=== PATIENT | female | born 1980 | race American Indian/Alaskan Native ===

== ENCOUNTER 2016-07-28 19:37 | Emergency (ER) | payer SELFPAY ==
[2016-07-28] MEDS ORDERED: Famotidine 20 MG/2 ML SDV IVPUSH ONE (19:49)
[2016-07-28] MEDS ORDERED: Nitroglycerin 0.4 MG Tab.SL SL ONE (19:49)
[2016-07-28] MEDS ORDERED: Aspirin 81 MG Tab.Chew PO ONE (19:49)
[2016-07-28] MEDS ORDERED: Alum Hydrox/Mag Hydrox/Simeth 15 ML, Metoclopramide 5 MG, Lidocaine 2% 5 ML PO ONE ×3 (19:49)
[2016-07-28] MEDS ORDERED: Ketorolac 30 MG/ML SDV IVPUSH ONE (19:49)
--- NOTE | 2016-07-28 20:01 | EDM.PDOC ---
ED HPI GENERAL MEDICAL PROBLEM - General Chief Complaint: Chest Pain Stated Complaint: PRESSURE IN CHEST Time Seen by Provider: 07/28/16 19:40 Source of Information: Reports: Patient History Limitations: Reports: No Limitations - History of Present Illness INITIAL COMMENTS - FREE TEXT/NARRATIVE: History of present illness: [5-year-old female comes in complaining of chest pressure stating that it feels like it often sitting on her chest. Patient also indicates that she has had increasing feelings of pain and radiation down her left arm.3] Review of systems: As per history of present illness and below otherwise all systems reviewed and negative. Past medical history: As per history of present illness and as reviewed below otherwise noncontributory. Surgical history: As per history of present illness and as reviewed below otherwise noncontributory. Social history: No reported history of drug or alcohol abuse. Family history: As per history of present illness and as reviewed below otherwise noncontributory. Physical exam: HEENT: Atraumatic, normocephalic, pupils reactive, negative for conjunctival pallor or scleral icterus, mucous membranes moist, throat clear, neck supple, nontender, trachea midline. Lungs: Clear to auscultation, breath sounds equal bilaterally, chest nontender. Heart: S1S2, regular, negative for clicks, rubs, or JVD. Abdomen: Soft, protuberant abdomen that is diffuse nonspecific tenderness. Negative for masses or hepatosplenomegaly. Negative for costovertebral tenderness. Pelvis: Stable nontender. Genitourinary: Deferred. Rectal: Deferred. Extremities: Atraumatic, negative for cords or calf pain. Neurovascular unremarkable. Neuro: Awake, alert, oriented. Cranial nerves II through XII unremarkable. Cerebellum unremarkable. Motor and sensory unremarkable throughout. Exam nonfocal. Diagnostics: [EKG, CBC, CMP, chest x-ray, CT of abdomen with contrast on the troponin] Therapeutics: [IV, Toradol, 1 nitroglycerin sublingual] Impression: [Atypical chest pain, abdominal pain] Plan: [Follow-up with PCP] Definitive disposition and diagnosis as appropriate pending reevaluation and review of above. chest Pain Score (Numeric/FACES): 1 - Related Data Allergies Allergy/AdvReac Type Severity Reaction Status Date / Time No Known Allergies Allergy Verified 07/28/16 19:44 Home Meds: Home Meds Venlafaxine [Effexor] 1 tab PO DAILY 07/15/13 [History] Hydrochlorothiazide 0 mg PO DAILY 07/28/16 [History] Social & Family History - Tobacco Use Smoking Status *Q: Current Every Day Smoker Years of Tobacco use: 1 - Alcohol Use Days Per Week of Alcohol Use: 2 Number of Drinks Per Day: 1 Total Drinks Per Week: 2 - Recreational Drug Use Recreational Drug Use: No ED ROS GENERAL - Review of Systems Review Of Systems: See Below (See history of present illness) ED EXAM, GENERAL - Physical Exam Exam: See Below (History of present illness) Course - Vital Signs Last Recorded V/S: Last Vital Signs Temp 36.7 C 07/28/16 19:46 Pulse 84 07/28/16 20:08 Resp 18 07/28/16 20:08 BP 120/76 07/28/16 20:08 Pulse Ox 95 07/28/16 20:08 - Orders/Labs/Meds Orders: Active Orders 24 hr Category Date Time Status Cardiac Monitoring [RC] . DIRECTED Care 07/28/16 19:49 Active EKG Documentation Completion [RC] STAT Care 07/28/16 19:49 Active Abdomen Pelvis w Cont [CT] Stat Exams 07/28/16 21:23 Ordered Chest 1V Frontal [CR] Stat Exams 07/28/16 19:49 Taken Saline Lock Insert [OM.PC] Stat Oth 07/28/16 19:49 Ordered Labs: Laboratory Tests 07/28/16 07/28/16 07/28/16 Range/Units 19:44 19:44 19:44 WBC 13.19 H (4.0-11.0) K/uL RBC 5.25 (4.30-5.90) M/uL Hgb 13.5 (12.0-16.0) g/dL Hct 41.2 (36.0-46.0) % MCV 78.5 L (80.0-98.0) fL MCH 25.7 L (27.0-32.0) pg MCHC 32.8 (31.0-37.0) g/dL RDW Std Deviation 41.0 (28.0-62.0) fl RDW Coeff of Jac 15 (11.0-15.0) % Plt Count 256 (150-400) K/uL MPV 9.70 (7.40-12.00) fL Neut % (Auto) 49.4 (48.0-80.0) % Lymph % (Auto) 43.2 H (16.0-40.0) % [place] % (Auto) 5.2 (0.0-15.0) % Eos % (Auto) 1.7 (0.0-7.0) % Baso % (Auto) 0.5 (0.0-1.5) % Neut # (Auto) 6.5 H (1.4-5.7) K/uL Lymph # (Auto) 5.7 H (0.6-2.4) K/uL [place] # (Auto) 0.7 (0.0-0.8) K/uL Eos # (Auto) 0.2 (0.0-0.7) K/uL Baso # (Auto) 0.1 (0.0-0.1) K/uL Nucleated RBC % 0.0 /100WBC Nucleated RBCs # 0 K/uL Sodium 139 (136-146) mmol/L Potassium 3.1 L (3.5-5.1) mmol/L Chloride 102 (98-110) mmol/L Carbon Dioxide 23 (21-31) mmol/L BUN 12 (6.0-23.0) mg/dL Creatinine 1.0 (0.6-1.5) mg/dL Est Cr Clr Drug Dosing 74.91 mL/min Estimated GFR (MDRD) > 60.0 ml/min Glucose 112 H (60-110) mg/dL Calcium 9.2 (8.8-10.8) mg/dL Total Bilirubin 0.3 (0.1-1.5) mg/dL AST 24 (5-40) IU/L ALT 22 (8-54) IU/L Alkaline Phosphatase 72 (40-150) Troponin I < 0.10 (0.0-0.29) NG/ML Total Protein 8.0 (6.0-8.0) g/dL Albumin 4.3 (3.5-5.0) g/dL Globulin 3.7 H (2.0-3.5) g/dL Albumin/Globulin Ratio 1.2 L (1.3-2.8) Amylase 54 (10-90) U/L Lipase 45 (7-80) U/L Urine Color Urine Appearance Urine pH (5.0-8.0) Ur Specific [place] (1.001-1.035) Urine Protein (NEGATIVE) mg/dL Urine Glucose (UA) (NEGATIVE) mg/dL Urine Ketones (NEGATIVE) mg/dL Urine Occult Blood (NEGATIVE) Urine Nitrite (NEGATIVE) Urine Bilirubin (NEGATIVE) Urine Urobilinogen (<2.0) EU/dL Ur Leukocyte Esterase (NEGATIVE) Urine RBC (0-2/HPF) Urine WBC (0-5/HPF) Ur Epithelial Cells (NONE-FEW) Urine Bacteria (NEGATIVE) Urine Mucus (NONE-MOD) Urine HCG, Qual (NEGATIVE) 07/28/16 07/28/16 Range/Units 20:10 20:10 WBC (4.0-11.0) K/uL RBC (4.30-5.90) M/uL Hgb (12.0-16.0) g/dL Hct (36.0-46.0) % MCV (80.0-98.0) fL MCH (27.0-32.0) pg MCHC (31.0-37.0) g/dL RDW Std Deviation (28.0-62.0) fl RDW Coeff of Jac (11.0-15.0) % Plt Count (150-400) K/uL MPV (7.40-12.00) fL Neut % (Auto) (48.0-80.0) % Lymph % (Auto) (16.0-40.0) % [place] % (Auto) (0.0-15.0) % Eos % (Auto) (0.0-7.0) % Baso % (Auto) (0.0-1.5) % Neut # (Auto) (1.4-5.7) K/uL Lymph # (Auto) (0.6-2.4) K/uL [place] # (Auto) (0.0-0.8) K/uL Eos # (Auto) (0.0-0.7) K/uL Baso # (Auto) (0.0-0.1) K/uL Nucleated RBC % /100WBC Nucleated RBCs # K/uL Sodium (136-146) mmol/L Potassium (3.5-5.1) mmol/L Chloride (98-110) mmol/L Carbon Dioxide (21-31) mmol/L BUN (6.0-23.0) mg/dL Creatinine (0.6-1.5) mg/dL Est Cr Clr Drug Dosing mL/min Estimated GFR (MDRD) ml/min Glucose (60-110) mg/dL Calcium (8.8-10.8) mg/dL Total Bilirubin (0.1-1.5) mg/dL AST (5-40) IU/L ALT (8-54) IU/L Alkaline Phosphatase (40-150) Troponin I (0.0-0.29) NG/ML Total Protein (6.0-8.0) g/dL Albumin (3.5-5.0) g/dL Globulin (2.0-3.5) g/dL Albumin/Globulin Ratio (1.3-2.8) Amylase (10-90) U/L Lipase (7-80) U/L Urine Color YELLOW Urine Appearance CLEAR Urine pH 5.5 (5.0-8.0) Ur Specific [place] 1.025 (1.001-1.035) Urine Protein NEGATIVE (NEGATIVE) mg/dL Urine Glucose (UA) NEGATIVE (NEGATIVE) mg/dL Urine Ketones NEGATIVE (NEGATIVE) mg/dL Urine Occult Blood TRACE-INTACT (NEGATIVE) Urine Nitrite NEGATIVE (NEGATIVE) Urine Bilirubin NEGATIVE (NEGATIVE) Urine Urobilinogen 0.2 (<2.0) EU/dL Ur Leukocyte Esterase NEGATIVE (NEGATIVE) Urine RBC 0-2 (0-2/HPF) Urine WBC 1-3 (0-5/HPF) Ur Epithelial Cells OCCASIONAL (NONE-FEW) Urine Bacteria FEW (NEGATIVE) Urine Mucus LIGHT (NONE-MOD) Urine HCG, Qual NEGATIVE (NEGATIVE) Meds: Medications Discontinued Medications Generic Name Dose Route Start Last Admin Trade Name Freq PRN Reason Stop Dose Admin Aspirin 324 mg 07/28/16 19:49 07/28/16 19:57 Aspirin PO 07/28/16 19:50 324 mg ONETIME ONE Administration Al Hydroxide/Mg Hydroxide 15 0 ml 07/28/16 19:49 07/28/16 20:04 ml/ Metoclopramide HCl 5 mg/ PO 07/28/16 19:50 1 each Lidocaine HCl 5 ml ONETIME ONE Administration Famotidine 20 mg 07/28/16 19:49 07/28/16 19:59 Pepcid IVPUSH 07/28/16 19:50 20 mg ONETIME ONE Administration Iopamidol 100 ml 07/28/16 22:08 07/28/16 22:08 Isovue-370 (76%) IVPUSH 07/28/16 22:09 100 ml ONETIME STA Administration Ketorolac Tromethamine 30 mg 07/28/16 19:49 07/28/16 20:01 Toradol IVPUSH 07/28/16 19:50 30 mg ONETIME ONE Administration Nitroglycerin 0.4 mg 07/28/16 19:49 07/28/16 19:57 Nitrostat SL 07/28/16 19:50 0.4 mg ONETIME ONE Administration Departure - Departure Time of Disposition: 22:56 Disposition: Home, Self-Care 01 Condition: Good Clinical Impression: Atypical chest pain Forms: ED Department Discharge Additional Instructions: The following information is given to patients seen in the emergency department who are being discharged to home. This information is to outline your options for follow-up care. We provide all patients seen in our emergency department with a follow-up referral. The need for follow-up, as well as the timing and circumstances, are variable depending upon the specifics of your emergency department visit. If you don't have a primary care physician on staff, we will provide you with a referral. We always advise you to contact your personal physician following an emergency department visit to inform them of the circumstance of the visit and for follow-up with them and/or the need for any referrals to a consulting specialist. The emergency department will also refer you to a specialist when appropriate. This referral assures that you have the opportunity for follow-up care with a specialist. All of these measure are taken in an effort to provide you with optimal care, which includes your follow-up. Under all circumstances we always encourage you to contact your private physician who remains a resource for coordinating your care. When calling for follow-up care, please make the office aware that this follow-up is from your recent emergency room visit. If for any reason you are refused follow-up, please contact the [facility] Emergency Department at and asked to speak to the emergency department charge nurse. Follow-up with PCP in 1-2 days Return to ER as needed as discussed - My Orders Last 24 Hours: My Active Orders 07/28/16 19:49 Cardiac Monitoring [RC] . DIRECTED EKG Documentation Completion [RC] STAT Chest 1V Frontal [CR] Stat Saline Lock Insert [OM.PC] Stat 07/28/16 21:23 Abdomen Pelvis w Cont [CT] Stat - Assessment/Plan Last 24 Hours: My Active Orders 07/28/16 19:49 Cardiac Monitoring [RC] . DIRECTED EKG Documentation Completion [RC] STAT Chest 1V Frontal [CR] Stat Saline Lock Insert [OM.PC] Stat 07/28/16 21:23 Abdomen Pelvis w Cont [CT] Stat
[2016-07-28 20:20] LABS: CHLORIDE,CL 102 mmol/L (98-110); SODIUM,NA 139 mmol/L (136-146)
[2016-07-28] MEDS ORDERED: Iopamidol 755 Mg/ML 100 ML Bottle IVPUSH STA (22:08)
[2016-07-29 00:17] VITALS: BP 114/71
--- NOTE | 2016-07-30 13:07 | CR ---
EXAM DATE: 07/28/16 PATIENT'S AGE: 35 Patient: REBECA ROLDAN Facility: [place], [place] Site . Site : 1980 Study: XRay Chest [id number]/17/2017 9:12:14 PM Ordering Physician: Doctor Adame Final Report: Indication: Chest pressure Technique: Chest 1 view Comparison: None Findings/Impression: Cardiovascular and mediastinum: Heart size and vasculature are normal in caliber and appearance. Mediastinum is within normal limits. Lungs and pleural space: Lungs are clear. No sign of infiltrate or mass. No sign of pleural effusion. No pneumothorax. Bones and soft tissues: No significant findings. Dictated by Carlo Segura MD @ 07/28/2016 9:19:16 PM Dictated by: Carlo Segrua MD @ 07/28/2016 21:19:23 (Electronic Signature) Report Signed by Proxy. BRIELLE
--- NOTE | 2016-07-30 13:09 | CT ---
EXAM DATE: 07/28/16 PATIENT'S AGE: 35 Patient: REBECA ROLDAN Facility: [place], [place] Site . Site : 1980 Study: CT Abdomen/Pelvis W CONT [id number]/17/2017 10:10:38 PM Ordering Physician: Doctor Adame Final Report: INDICATION: Lower abdominal pain TECHNIQUE: CT abdomen and pelvis acquired with IV contrast. COMPARISON: None available FINDINGS: Lower chest: Unremarkable. Liver: A low-attenuation area in the anterior left hepatic lobe near the falciform ligament is presumably related to focal fatty infiltration. A sub centimeter posterior right hepatic low-density lesion, too small to characterize. Spleen: Unremarkable. Pancreas: Unremarkable. Gallbladder and bile ducts: Unremarkable. Adrenal glands: Unremarkable. Kidneys: No hydronephrosis. A subcentimeter left renal low-density lesion, too small to characterize, statistically representing a cyst. GI tract: Unremarkable. Appendix is normal. Vascular structures: Unremarkable. Lymph nodes: Unremarkable. Miscellaneous: Apparent minimal fluid in the cul-de-sac. No free air. Pelvic Organs: Prominent uterine endometrium, likely physiologic. A small peripherally enhancing right adnexal low-density structure consistent with an involuting physiologic follicle. No discrete bladder abnormality seen. Bones: Unremarkable for age. IMPRESSION: No evidence of an acute process in the abdomen or pelvis. Other findings as above. Dictated by Carlo Segura MD @ 07/28/2016 10:45:24 PM Dictated by: Carlo Segura MD @ 07/28/2016 22:45:31 (Electronic Signature) Report Signed by Proxy. [facility] HOSPITALArianna
== END 2016-07-28 23:20 | disposition home or self-care (01) ==
LOC: MW.ED 19:37
DX: R07.89 Other chest pain (principal); R10.9 Unspecified abdominal pain; F17.210 Nicotine dependence, cigarettes, uncomplicated
CPT/HCPCS: 71010; 74177; 80053; 81001; 81025; 82150; 83690; 84484; 85025; 93005; 96374; 96375; 99285; A9270; J1885; Q9967; 99284

== ENCOUNTER 2018-06-07 18:47 | Day surgery (SDC) | payer BC, OTHER ==
[2018-06-07] MEDS ORDERED: Ketorolac 30 MG/ML SDV IVPUSH ONE (18:49)
[2018-06-07] MEDS ORDERED: Sodium Chloride 0.9% 1,000 ML IV ONE (18:49)
[2018-06-07] MEDS ORDERED: Ondansetron 4 MG/2 ML SDV IVPUSH ONE (18:49)
--- NOTE | 2018-06-07 19:06 | EDM.PDOC ---
ED HPI GENERAL MEDICAL PROBLEM - General Stated Complaint: ABDOMINAL AND BACK PAIN Time Seen by Provider: 06/07/18 18:48 Source of Information: Reports: Patient History Limitations: Reports: No Limitations - History of Present Illness INITIAL COMMENTS - FREE TEXT/NARRATIVE: HISTORY AND PHYSICAL: History of present illness: Patient is a 37-year-old female who presents to the emergency room with complaints of back and abdominal pain. She states approximately 2 days ago she started to have some left flank pain that radiates to her lumbar back. This pain has now progressed to her right lower quadrant in the epigastric area. She states the pain is worse after eating, standing up straight or physical activity. She does have some nausea without vomiting. Patient denies any fever, chills, headache, change in vision, syncope or near syncope. Denies any chest pain, shortness of breath or cough. Denies any vomiting, diarrhea, constipation or dysuria. Has not noted any blood in urine or stool. Patient has been eating and drinking appropriately. Review of systems: As per history of present illness and below otherwise all systems reviewed and negative. Past medical history: As per history of present illness and as reviewed below otherwise noncontributory. Surgical history: As per history of present illness and as reviewed below otherwise noncontributory. Social history: See social history for further information Family history: As per history of present illness and as reviewed below otherwise noncontributory. Physical exam: General: Well-developed and well-nourished 37-year-old female. Alert and oriented. Nontoxic appearing and in no acute distress. HEENT: Atraumatic, normocephalic, pupils equal and reactive bilaterally, negative for conjunctival pallor or scleral icterus, mucous membranes moist, TMs normal bilaterally, throat clear, neck supple, nontender, trachea midline. No drooling or trismus noted. No meningeal signs. No hot potato voice noted. Lungs: Clear to auscultation, breath sounds equal bilaterally, chest nontender. Heart: S1S2, regular rate and rhythm without overt murmur Abdomen: Soft, nondistended, RLQ tenderness, rebound tenderness. Negative for masses or hepatosplenomegaly. Negative for costovertebral tenderness. Pelvis: Stable nontender. Genitourinary: Deferred. Rectal: Deferred. Skin: Intact, warm, dry. No lesions or rashes noted. Extremities: Atraumatic, moves all extremities per self without difficulty or deficits, negative for cords or calf pain. Neurovascular unremarkable. Neuro: Awake, alert, oriented. Cranial nerves II through XII unremarkable. Cerebellum unremarkable. Motor and sensory unremarkable throughout. Exam nonfocal. Notes: CT shows an acute appendicitis. There is also an appendicolith noted. No abscess. Patient does have an elevated WBC. Dr. Porras was consulted on this case. He will come in to evaluate the patient. 2130: Vern here to evaluate patient. Diagnostics: CBC, CMP, UA, HCGU, H.Pylori, CT abd/pelvis Therapeutics: IV fluids, zofran, toradol Impression: Acute appendicitis Appendicolith Plan: Dr Porras to take patient to OR Definitive disposition and diagnosis as appropriate pending reevaluation and review of above. 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 ED EXAM, GI/ABD - Physical Exam Exam: See Below (See dictation) Course - Vital Signs Last Recorded V/S: Last Vital Signs Temp 97.2 F 06/07/18 20:30 Pulse 89 06/07/18 20:30 Resp 18 06/07/18 20:30 BP 118/68 06/07/18 20:30 Pulse Ox 95 06/07/18 20:30 - Orders/Labs/Meds Labs: Laboratory Tests 06/07/18 06/07/18 06/07/18 Range/Units 19:15 19:15 19:15 WBC 15.45 H (4.0-11.0) K/uL RBC 5.13 (4.30-5.90) M/uL Hgb 13.2 (12.0-16.0) g/dL Hct 40.7 (36.0-46.0) % MCV 79.3 L (80.0-98.0) fL MCH 25.7 L (27.0-32.0) pg MCHC 32.4 (31.0-37.0) g/dL RDW Std Deviation 43.8 (28.0-62.0) fl RDW Coeff of Jac 15 (11.0-15.0) % Plt Count 267 (150-400) K/uL MPV 9.20 (7.40-12.00) fL Neut % (Auto) 66.2 (48.0-80.0) % Lymph % (Auto) 25.3 (16.0-40.0) % [place] % (Auto) 7.1 (0.0-15.0) % Eos % (Auto) 1.1 (0.0-7.0) % Baso % (Auto) 0.3 (0.0-1.5) % Neut # (Auto) 10.2 H (1.4-5.7) K/uL Lymph # (Auto) 3.9 H (0.6-2.4) K/uL [place] # (Auto) 1.1 H (0.0-0.8) K/uL Eos # (Auto) 0.2 (0.0-0.7) K/uL Baso # (Auto) 0.0 (0.0-0.1) K/uL Nucleated RBC % 0.0 /100WBC Nucleated RBCs # 0 K/uL Sodium 137 (136-145) mmol/L Potassium 3.6 (3.5-5.1) mmol/L Chloride 100 (98-107) mmol/L Carbon Dioxide 30.0 (21.0-32.0) mmol/L BUN 10 (7.0-18.0) mg/dL Creatinine 0.8 (0.6-1.0) mg/dL Est Cr Clr Drug Dosing 91.88 mL/min Estimated GFR (MDRD) > 60.0 ml/min Glucose 100 (74-106) mg/dL Calcium 9.4 (8.5-10.1) mg/dL Total Bilirubin 0.5 (0.2-1.0) mg/dL AST 24 (15-37) IU/L ALT 44 (14-63) IU/L Alkaline Phosphatase 63 (46-116) U/L Total Protein 8.4 H (6.4-8.2) g/dL Albumin 3.8 (3.4-5.0) g/dL Globulin 4.6 H (2.6-4.0) g/dL Albumin/Globulin Ratio 0.8 L (0.9-1.6) Lipase 131 (73-393) U/L Urine Color Urine Appearance Urine pH (5.0-8.0) Ur Specific [place] (1.001-1.035) Urine Protein (NEGATIVE) mg/dL Urine Glucose (UA) (NEGATIVE) mg/dL Urine Ketones (NEGATIVE) mg/dL Urine Occult Blood (NEGATIVE) Urine Nitrite (NEGATIVE) Urine Bilirubin (NEGATIVE) Urine Urobilinogen (<2.0) EU/dL Ur Leukocyte Esterase (NEGATIVE) Urine RBC (0-2/HPF) Urine WBC (0-5/HPF) Ur Epithelial Cells (NONE-FEW) Urine Bacteria (NEGATIVE) Urine HCG, Qual (NEGATIVE) H. pylori IgG Antibody NEGATIVE (NEG) 06/07/18 06/07/18 Range/Units 19:20 19:20 WBC (4.0-11.0) K/uL RBC (4.30-5.90) M/uL Hgb (12.0-16.0) g/dL Hct (36.0-46.0) % MCV (80.0-98.0) fL MCH (27.0-32.0) pg MCHC (31.0-37.0) g/dL RDW Std Deviation (28.0-62.0) fl RDW Coeff of Jac (11.0-15.0) % Plt Count (150-400) K/uL MPV (7.40-12.00) fL Neut % (Auto) (48.0-80.0) % Lymph % (Auto) (16.0-40.0) % [place] % (Auto) (0.0-15.0) % Eos % (Auto) (0.0-7.0) % Baso % (Auto) (0.0-1.5) % Neut # (Auto) (1.4-5.7) K/uL Lymph # (Auto) (0.6-2.4) K/uL [place] # (Auto) (0.0-0.8) K/uL Eos # (Auto) (0.0-0.7) K/uL Baso # (Auto) (0.0-0.1) K/uL Nucleated RBC % /100WBC Nucleated RBCs # K/uL Sodium (136-145) mmol/L Potassium (3.5-5.1) mmol/L Chloride (98-107) mmol/L Carbon Dioxide (21.0-32.0) mmol/L BUN (7.0-18.0) mg/dL Creatinine (0.6-1.0) mg/dL Est Cr Clr Drug Dosing mL/min Estimated GFR (MDRD) ml/min Glucose (74-106) mg/dL Calcium (8.5-10.1) mg/dL Total Bilirubin (0.2-1.0) mg/dL AST (15-37) IU/L ALT (14-63) IU/L Alkaline Phosphatase (46-116) U/L Total Protein (6.4-8.2) g/dL Albumin (3.4-5.0) g/dL Globulin (2.6-4.0) g/dL Albumin/Globulin Ratio (0.9-1.6) Lipase (73-393) U/L Urine Color YELLOW Urine Appearance HAZY Urine pH 7.0 (5.0-8.0) Ur Specific [place] 1.010 (1.001-1.035) Urine Protein NEGATIVE (NEGATIVE) mg/dL Urine Glucose (UA) NEGATIVE (NEGATIVE) mg/dL Urine Ketones NEGATIVE (NEGATIVE) mg/dL Urine Occult Blood TRACE-INTACT H (NEGATIVE) Urine Nitrite NEGATIVE (NEGATIVE) Urine Bilirubin NEGATIVE (NEGATIVE) Urine Urobilinogen 0.2 (<2.0) EU/dL Ur Leukocyte Esterase NEGATIVE (NEGATIVE) Urine RBC 0-3 (0-2/HPF) Urine WBC 0-2 (0-5/HPF) Ur Epithelial Cells RARE (NONE-FEW) Urine Bacteria RARE (NEGATIVE) Urine HCG, Qual NEGATIVE (NEGATIVE) H. pylori IgG Antibody (NEG) Meds: Medications Discontinued Medications Generic Name Dose Route Start Last Admin Trade Name Stephen PRN Reason Stop Dose Admin Sodium Chloride 1,000 mls @ 999 mls/hr 06/07/18 18:49 06/07/18 19:22 Normal Saline IV 06/07/18 19:49 999 mls/hr STAT ONE Administration Iopamidol 100 ml 06/07/18 20:18 06/07/18 20:18 Isovue-370 (76%) IVPUSH 06/07/18 20:19 100 ml ONETIME ONE Administration Ketorolac Tromethamine 30 mg 06/07/18 18:49 06/07/18 19:24 Toradol IVPUSH 06/07/18 18:50 30 mg ONETIME ONE Administration Ondansetron HCl 4 mg 06/07/18 18:49 06/07/18 19:23 Zofran IVPUSH 06/07/18 18:50 4 mg ONETIME ONE Administration Departure - Departure Time of Disposition: 21:30 Disposition: Refer to Observation Clinical Impression: Appendicolith Acute appendicitis Qualifiers: Acute appendicitis type: unspecified acute appendicitis type Qualified Code(s) : K35.80 - Unspecified acute appendicitis - Discharge Information Referrals: Joan Nicolas MD [Primary Care Provider] -
[2018-06-07 19:44] LABS: CHLORIDE,CL 100 mmol/L (98-107); SODIUM,NA 137 mmol/L (136-145)
[2018-06-07] MEDS ORDERED: Iopamidol 755 Mg/ML 100 ML Bottle IVPUSH ONE (20:18)
--- NOTE | 2018-06-07 21:04 | CT ---
INDICATION: Pain. TECHNIQUE: Contiguous axial images were acquired through the abdomen and pelvis after the intravenous administration of contrast. Sagittal and coronal reconstructions. COMPARISON: 07/28/2016. FINDINGS: Lower chest: Heart size is normal. No pericardial effusion. Minor bibasilar atelectasis. Abdomen pelvis: Fatty liver. Gallbladder and bile ducts, pancreas, spleen, adrenal glands and kidneys are essentially unremarkable other than a small left renal cyst. Normal caliber abdominal aorta. There is a 1.5 cm appendicolith seen at the base of the appendix, with abnormal dilatation of the appendix, which measures up to 1.4 cm, and appendiceal wall thickening with periappendiceal inflammatory changes consistent with acute appendicitis. No extraluminal air to suggest perforation. No drainable fluid collection or abscess. Unremarkable urinary bladder. Uterus is present. No adnexal mass is identified. Mildly prominent right inguinal lymph node is unchanged and therefore likely benign/reactive. Bones: No acute abnormality. IMPRESSION: 1. Findings consistent with acute appendicitis. No evidence of perforation. No abscess. Appendicolith is noted. 2. Incidental findings as noted. Dictated by Brayden Hernandez MD @ 06/07/2018 9:01:51 PM Please note that all CT scans at this facility use dose modulation, iterative reconstruction, and/or weight-based dosing when appropriate to reduce radiation dose to as low as reasonably achievable. Dictated by: Brayden Hernandez MD @ 06/07/2018 21:02:12 (Electronically Signed)
[2018-06-07] MEDS ORDERED: cefOXitin 2 GM in Premix Bag 1 BAG IV ONE (21:51)
--- NOTE | 2018-06-07 21:57 | PCM.CONS ---
H&P History of Present Illness - General Date of Service: 06/07/18 Admit Problem/Dx: Admission Diagnosis/Problem Admission Diagnosis/Problem Appendicitis Source of Information: Patient History Limitations: Reports: No Limitations - History of Present Illness Initial Comments - Free Text/Narative: Patient is a 37-year-old female who presented to the emergency room today complaining of abdominal pain that began yesterday. Initially the pain was in the upper abdomen and periumbilical region. It has gradually migrated to the right lower quadrant. This has been associated with some nausea but no vomiting. No fever or chills. No change in bowel habits. Symptom Onset Date: 06/06/18 Location: Reports: Abdomen Quality: Reports: Ache, Throbbing Severity: Mild Improves with: Reports: Rest Worsens with: Reports: Movement Context: Reports: Sick Contact Associated Symptoms: Reports: Nausea/Vomiting (no vomiting). 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: , Other (See Below) Other OB/BYN History: lumpectomy Psychiatric History: Reports: Anxiety, Depression - Infectious Disease History Infectious Disease History: Reports: Chicken Pox - Past Surgical History GI Surgical History: Reports: Colonoscopy Female Surgical History: Reports: Tubal Ligation Social & Family History - Family History Family Medical History: Noncontributory - Tobacco Use Smoking Status *Q: Current Every Day Smoker Years of Tobacco use: 15 Packs/Tins Daily: 0.5 - Caffeine Use Caffeine Use: Reports: Coffee Caffeine Use Comment: 4 cups daily - Recreational Drug Use Recreational Drug Use: No H&P Review of Systems - Review of Systems: Review Of Systems: See Below General: Reports: Decreased Appetite. Denies: Fever, Chills HEENT: Reports: Contact Lenses. Denies: Dysphasia Pulmonary: Denies: Shortness of Breath, Wheezing Cardiovascular: Denies: Chest Pain Gastrointestinal: Reports: Abdominal Pain, Decreased Appetite, Flatus, Nausea. Denies: Anorexia, Black Stool, Bloody Stool, Constipation, Diarrhea, Distension , Hematemesis, Hematochezia, Vomiting Genitourinary: Denies: Dysuria, Frequency, Burning, Pain, Urgency Musculoskeletal: Reports: No Symptoms Skin: Reports: No Symptoms Psychiatric: Reports: Depression, Anxiety. Denies: Confusion, Mood Lability Neurological: Reports: No Symptoms Hematologic/Lymphatic: Reports: No Symptoms Immunologic: Reports: No Symptoms Exam - Exam Exam: See Below - Vital Signs Vital Signs: Last Vital Signs Temp 97.2 F 06/07/18 20:30 Pulse 89 06/07/18 20:30 Resp 18 06/07/18 20:30 BP 118/68 06/07/18 20:30 Pulse Ox 95 06/07/18 20:30 Weight: 240 lb - Exam General: Alert, Oriented, Cooperative, Mild Distress HEENT: Conjunctiva Clear, EACs Clear, Nares Patent, Pupils Equal, Pupils Reactive. No: Scleral Icterus Neck: Supple, Trachea Midline Lungs: Clear to Auscultation, Normal Respiratory Effort Cardiovascular: Regular Rate, Regular Rhythm, Normal S1, Normal S2. No: Tachycardia, Systolic Murmur, Diastolic Murmur GI/Abdominal Exam: Normal Bowel Sounds, Soft, No Distention, No Mass, Rebound, Tender. No: Guarding, Rigid (Female) Exam: Deferred Rectal (Female) Exam: Deferred Back Exam: Normal Inspection Extremities: Normal Inspection Peripheral Pulses: 4+: Posterior Tibial (L), Posterior Tibial (R), Dorsalis Pedis (L), Dorsalis Pedis (R) Skin: Warm, Dry, Intact Neurological: Cranial Nerves Intact Neuro Extensive - Mental Status: Alert, Oriented x3, Normal Mood/Affect, Normal Cognition, Memory Intact Psychiatric: Alert, Normal Affect, Normal Mood - Patient Data Lab Results Last 24 hrs: Laboratory Results - last 24 hr 06/07/18 06/07/18 06/07/18 Range/Units 19:15 19:15 19:15 WBC 15.45 H (4.0-11.0) K/uL RBC 5.13 (4.30-5.90) M/uL Hgb 13.2 (12.0-16.0) g/dL Hct 40.7 (36.0-46.0) % MCV 79.3 L (80.0-98.0) fL MCH 25.7 L (27.0-32.0) pg MCHC 32.4 (31.0-37.0) g/dL RDW Std Deviation 43.8 (28.0-62.0) fl RDW Coeff of Jac 15 (11.0-15.0) % Plt Count 267 (150-400) K/uL MPV 9.20 (7.40-12.00) fL Neut % (Auto) 66.2 (48.0-80.0) % Lymph % (Auto) 25.3 (16.0-40.0) % [place] % (Auto) 7.1 (0.0-15.0) % Eos % (Auto) 1.1 (0.0-7.0) % Baso % (Auto) 0.3 (0.0-1.5) % Neut # (Auto) 10.2 H (1.4-5.7) K/uL Lymph # (Auto) 3.9 H (0.6-2.4) K/uL [place] # (Auto) 1.1 H (0.0-0.8) K/uL Eos # (Auto) 0.2 (0.0-0.7) K/uL Baso # (Auto) 0.0 (0.0-0.1) K/uL Nucleated RBC % 0.0 /100WBC Nucleated RBCs # 0 K/uL Sodium 137 (136-145) mmol/L Potassium 3.6 (3.5-5.1) mmol/L Chloride 100 (98-107) mmol/L Carbon Dioxide 30.0 (21.0-32.0) mmol/L BUN 10 (7.0-18.0) mg/dL Creatinine 0.8 (0.6-1.0) mg/dL Est Cr Clr Drug Dosing 91.88 mL/min Estimated GFR (MDRD) > 60.0 ml/min Glucose 100 (74-106) mg/dL Calcium 9.4 (8.5-10.1) mg/dL Total Bilirubin 0.5 (0.2-1.0) mg/dL AST 24 (15-37) IU/L ALT 44 (14-63) IU/L Alkaline Phosphatase 63 (46-116) U/L Total Protein 8.4 H (6.4-8.2) g/dL Albumin 3.8 (3.4-5.0) g/dL Globulin 4.6 H (2.6-4.0) g/dL Albumin/Globulin Ratio 0.8 L (0.9-1.6) Lipase 131 (73-393) U/L Urine Color Urine Appearance Urine pH (5.0-8.0) Ur Specific [place] (1.001-1.035) Urine Protein (NEGATIVE) mg/dL Urine Glucose (UA) (NEGATIVE) mg/dL Urine Ketones (NEGATIVE) mg/dL Urine Occult Blood (NEGATIVE) Urine Nitrite (NEGATIVE) Urine Bilirubin (NEGATIVE) Urine Urobilinogen (<2.0) EU/dL Ur Leukocyte Esterase (NEGATIVE) Urine RBC (0-2/HPF) Urine WBC (0-5/HPF) Ur Epithelial Cells (NONE-FEW) Urine Bacteria (NEGATIVE) Urine HCG, Qual (NEGATIVE) H. pylori IgG Antibody NEGATIVE (NEG) 06/07/18 06/07/18 Range/Units 19:20 19:20 WBC (4.0-11.0) K/uL RBC (4.30-5.90) M/uL Hgb (12.0-16.0) g/dL Hct (36.0-46.0) % MCV (80.0-98.0) fL MCH (27.0-32.0) pg MCHC (31.0-37.0) g/dL RDW Std Deviation (28.0-62.0) fl RDW Coeff of Jac (11.0-15.0) % Plt Count (150-400) K/uL MPV (7.40-12.00) fL Neut % (Auto) (48.0-80.0) % Lymph % (Auto) (16.0-40.0) % [place] % (Auto) (0.0-15.0) % Eos % (Auto) (0.0-7.0) % Baso % (Auto) (0.0-1.5) % Neut # (Auto) (1.4-5.7) K/uL Lymph # (Auto) (0.6-2.4) K/uL [place] # (Auto) (0.0-0.8) K/uL Eos # (Auto) (0.0-0.7) K/uL Baso # (Auto) (0.0-0.1) K/uL Nucleated RBC % /100WBC Nucleated RBCs # K/uL Sodium (136-145) mmol/L Potassium (3.5-5.1) mmol/L Chloride (98-107) mmol/L Carbon Dioxide (21.0-32.0) mmol/L BUN (7.0-18.0) mg/dL Creatinine (0.6-1.0) mg/dL Est Cr Clr Drug Dosing mL/min Estimated GFR (MDRD) ml/min Glucose (74-106) mg/dL Calcium (8.5-10.1) mg/dL Total Bilirubin (0.2-1.0) mg/dL AST (15-37) IU/L ALT (14-63) IU/L Alkaline Phosphatase (46-116) U/L Total Protein (6.4-8.2) g/dL Albumin (3.4-5.0) g/dL Globulin (2.6-4.0) g/dL Albumin/Globulin Ratio (0.9-1.6) Lipase (73-393) U/L Urine Color YELLOW Urine Appearance HAZY Urine pH 7.0 (5.0-8.0) Ur Specific [place] 1.010 (1.001-1.035) Urine Protein NEGATIVE (NEGATIVE) mg/dL Urine Glucose (UA) NEGATIVE (NEGATIVE) mg/dL Urine Ketones NEGATIVE (NEGATIVE) mg/dL Urine Occult Blood TRACE-INTACT H (NEGATIVE) Urine Nitrite NEGATIVE (NEGATIVE) Urine Bilirubin NEGATIVE (NEGATIVE) Urine Urobilinogen 0.2 (<2.0) EU/dL Ur Leukocyte Esterase NEGATIVE (NEGATIVE) Urine RBC 0-3 (0-2/HPF) Urine WBC 0-2 (0-5/HPF) Ur Epithelial Cells RARE (NONE-FEW) Urine Bacteria RARE (NEGATIVE) Urine HCG, Qual NEGATIVE (NEGATIVE) H. pylori IgG Antibody (NEG) Result Diagrams: 06/07/18 19:15 06/07/18 19:15 Consult PN Assessment/Plan Procedures: Procedures ASSAY OF AMYLASE (07/28/16) ASSAY OF LIPASE (07/28/16) ASSAY OF TROPONIN QUANT (07/28/16) BX OF CERVIX W/SCOPE LEEP (07/16/13) CHEST X-RAY 1 VIEW FRONTAL (07/28/16) COMPLETE CBC W/AUTO DIFF WBC (07/28/16) COMPREHEN METABOLIC PANEL (07/28/16) CT ABD & PELV W/CONTRAST (07/28/16) CT ANGIOGRAPHY CHEST (07/31/16) CT HEAD/BRAIN W/O DYE (10/16/14) ELECTROCARDIOGRAM TRACING (07/28/16) EMERGENCY DEPT VISIT (07/28/16) EMERGENCY DEPT VISIT (10/16/14) ROUTINE VENIPUNCTURE (10/16/14) THER/PROPH/DIAG INJ IV PUSH (07/28/16) TISSUE EXAM BY PATHOLOGIST (07/16/13) TISSUE EXAM BY PATHOLOGIST (07/16/13) TX/PRO/DX INJ NEW DRUG ADDON (07/28/16) URINALYSIS AUTO W/SCOPE (07/28/16) URINE TEST (07/28/16) (1) Acute appendicitis SNOMED Code(s): 66507432 Code(s): K35.80 - UNSPECIFIED ACUTE APPENDICITIS Priority: High Current Visit: Yes Qualifiers: Acute appendicitis type: unspecified acute appendicitis type Qualified Code (s): K35.80 - Unspecified acute appendicitis (2) Appendicolith SNOMED Code(s): 35109934 Code(s): K38.9 - DISEASE OF APPENDIX, UNSPECIFIED Priority: High Current Visit: Yes Problem List Initiated/Reviewed/Updated: Yes My Orders Last 24 Hours: My Active Orders 06/07/18 21:51 Antiembolic Devices [RC] PER UNIT ROUTINE Insert Urinary Catheter [OM.PC] Timed Oxygen Therapy [RC] ASDIRECTED RT Incentive Spirometry [RC] Q1HWA Skin Preparation [RC] .PREOP Urinary Catheter Assessment [RC] ASDIRECTED Urinary Catheter Assessment [RC] ASDIRECTED Urinary Catheter Assessment [RC] ASDIRECTED Vital Signs [RC] PER UNIT ROUTINE cefOXitin [Mefoxin in Dextrose,Iso-Osm 2 GM/50 ML] 2 gm Premix Bag 1 bag IV ONETIME Antiembolic Hose [OM.PC] Routine Resuscitation Status Routine 06/07/18 22:00 Lactated Ringers @ 125 MLS/HR(1000ml) Lactated Ringers [Ringers, Lactated] 1, 000 ml IV ASDIRECTED 06/07/18 Dinner Nothing Per Oral Diet [DIET] Plan: CT scan and reports are personally been reviewed. I agree with the diagnosis of appendicitis with an appendicolith. Laparoscopic appendectomy, possible open appendectomy. Both operative procedures, along with the risks, including, but not limited to, bleeding, infection, pneumonia, deep venous thrombosis, pulmonary emboli, myocardial infarction, and adjacent organ injury have been reviewed with the patient who voices understanding, offers no questions and agrees to proceed.
[2018-06-07] MEDS ORDERED: Lactated Ringers 1,000 ML IV SCH (22:00)
[2018-06-07] MEDS ORDERED: Bupivacaine 0.5% 10 ML SDV ONE (22:02)
[2018-06-07] MEDS ORDERED: ceFAZolin 1 GM Vial ONE (22:02)
[2018-06-07] MEDS ORDERED: Midazolam 1 MG/ML 2 ML SDV ONE (22:14)
[2018-06-07] MEDS ORDERED: Ondansetron 4 MG/2 ML SDV ONE (22:14)
[2018-06-07] MEDS ORDERED: Lidocaine 2% 5 ML SDV ONE (22:14)
[2018-06-07] MEDS ORDERED: Ketorolac 30 MG/ML SDV ONE (22:14)
[2018-06-07] MEDS ORDERED: Propofol 200 MG/20 ML SDV ONE (22:14)
[2018-06-07] MEDS ORDERED: Dexamethasone 4 MG/ML 5 ML MDV ONE (22:14)
[2018-06-07] MEDS ORDERED: fentaNYL 250 MCG/5 ML SDV ONE (22:15)
[2018-06-07] MEDS ORDERED: fentaNYL 100 MCG/2 ML SDV IVPUSH PRN (22:52)
[2018-06-07] MEDS ORDERED: Metoclopramide 10 MG/2 ML SDV IVPUSH PRN (22:52)
[2018-06-07] MEDS ORDERED: Naloxone 0.4 MG/ML Syringe IVPUSH PRN (22:52)
[2018-06-07] MEDS ORDERED: Morphine 4 MG/ML Syringe IVPUSH PRN (22:52)
[2018-06-07] MEDS ORDERED: Labetalol 20 MG/4 ML Syringe IVPUSH PRN (22:52)
[2018-06-07] MEDS ORDERED: HYDROmorphone 2 MG/ML SDV IVPUSH PRN (22:52)
[2018-06-07] MEDS ORDERED: Meperidine PF 25 MG/ML Syringe IV PRN (22:52)
[2018-06-07] MEDS ORDERED: Atropine 0.1 MG/ML 10 ML Syringe IVPUSH PRN (22:52)
[2018-06-07] MEDS ORDERED: Albuterol 0.083% 2.5 MG/3 ML Neb Soln NEB PRN (22:52)
[2018-06-07] MEDS ORDERED: Promethazine 25 MG/ML SDV IM PRN (22:52)
[2018-06-07] MEDS ORDERED: Ondansetron 4 MG/2 ML SDV IVPUSH PRN (22:52)
[2018-06-07] MEDS ORDERED: hydrALAZINE 20 MG/ML SDV IVPUSH PRN ×2 (22:52)
[2018-06-07] MEDS ORDERED: Scopolamine 1.5 MG Transdermal Patch TRDERM PRN (22:52)
[2018-06-07] MEDS ORDERED: Meperidine PF 25 MG/ML Syringe IVPUSH PRN (22:52)
--- NOTE | 2018-06-07 22:56 | PCM.PREANE ---
Preanesthetic Assessment - Procedure Proposed Procedure: lap appy - Anesthesia/Transfusion/Family Hx Anesthesia History: Prior Anesthesia Without Reaction - Review of Systems General: No Symptoms Pulmonary: No Symptoms Cardiovascular: No Symptoms Gastrointestinal: Abdominal Pain Neurological: No Symptoms Other: Reports: None - Physical Assessment NPO Status Date: 06/07/18 NPO Status Time: 17:00 Pulse: 85 O2 Sat by Pulse Oximetry: 95 Respiratory Rate: 17 Vital Signs: Last Vital Signs Temp 36.3 C 06/07/18 22:15 Pulse 93 06/07/18 22:15 Resp 17 06/07/18 22:15 BP 119/74 06/07/18 22:15 Pulse Ox 95 06/07/18 22:15 Height: 1.68 m Weight: 108.862 kg ASA Class: 2E Mental Status: Alert & Oriented x3 Airway Class: Mallampati = 2 Dentition: Reports: Normal Dentition Thyro-Mental Finger Breadths: 3 Mouth Opening Finger Breadths: 3 ROM/Head Extension: Full Lungs: Clear to Auscultation, Normal Respiratory Effort Cardiovascular: Regular Rate, Regular Rhythm - Lab Values: Laboratory Last Values WBC 15.45 K/uL (4.0-11.0) H 06/07/18 19:15 RBC 5.13 M/uL (4.30-5.90) 06/07/18 19:15 Hgb 13.2 g/dL (12.0-16.0) 06/07/18 19:15 Hct 40.7 % (36.0-46.0) 06/07/18 19:15 MCV 79.3 fL (80.0-98.0) L 06/07/18 19:15 MCH 25.7 pg (27.0-32.0) L 06/07/18 19:15 MCHC 32.4 g/dL (31.0-37.0) 06/07/18 19:15 RDW Std Deviation 43.8 fl (28.0-62.0) 06/07/18 19:15 RDW Coeff of Jac 15 % (11.0-15.0) 06/07/18 19:15 Plt Count 267 K/uL (150-400) 06/07/18 19:15 MPV 9.20 fL (7.40-12.00) 06/07/18 19:15 Neut % (Auto) 66.2 % (48.0-80.0) 06/07/18 19:15 Lymph % (Auto) 25.3 % (16.0-40.0) 06/07/18 19:15 [place] % (Auto) 7.1 % (0.0-15.0) 06/07/18 19:15 Eos % (Auto) 1.1 % (0.0-7.0) 06/07/18 19:15 Baso % (Auto) 0.3 % (0.0-1.5) 06/07/18 19:15 Neut # (Auto) 10.2 K/uL (1.4-5.7) H 06/07/18 19:15 Lymph # (Auto) 3.9 K/uL (0.6-2.4) H 06/07/18 19:15 [place] # (Auto) 1.1 K/uL (0.0-0.8) H 06/07/18 19:15 Eos # (Auto) 0.2 K/uL (0.0-0.7) 06/07/18 19:15 Baso # (Auto) 0.0 K/uL (0.0-0.1) 06/07/18 19:15 Nucleated RBC % 0.0 /100WBC 06/07/18 19:15 Nucleated RBCs # 0 K/uL 06/07/18 19:15 Sodium 137 mmol/L (136-145) 06/07/18 19:15 Potassium 3.6 mmol/L (3.5-5.1) 06/07/18 19:15 Chloride 100 mmol/L (98-107) 06/07/18 19:15 Carbon Dioxide 30.0 mmol/L (21.0-32.0) 06/07/18 19:15 BUN 10 mg/dL (7.0-18.0) 06/07/18 19:15 Creatinine 0.8 mg/dL (0.6-1.0) 06/07/18 19:15 Est Cr Clr Drug Dosing 91.88 mL/min 06/07/18 19:15 Estimated GFR (MDRD) > 60.0 ml/min 06/07/18 19:15 Glucose 100 mg/dL (74-106) 06/07/18 19:15 Calcium 9.4 mg/dL (8.5-10.1) 06/07/18 19:15 Total Bilirubin 0.5 mg/dL (0.2-1.0) 06/07/18 19:15 AST 24 IU/L (15-37) 06/07/18 19:15 ALT 44 IU/L (14-63) 06/07/18 19:15 Alkaline Phosphatase 63 U/L (46-116) 06/07/18 19:15 Total Protein 8.4 g/dL (6.4-8.2) H 06/07/18 19:15 Albumin 3.8 g/dL (3.4-5.0) 06/07/18 19:15 Globulin 4.6 g/dL (2.6-4.0) H 06/07/18 19:15 Albumin/Globulin Ratio 0.8 (0.9-1.6) L 06/07/18 19:15 Lipase 131 U/L (73-393) 06/07/18 19:15 Urine Color YELLOW 06/07/18 19:20 Urine Appearance HAZY 06/07/18 19:20 Urine pH 7.0 (5.0-8.0) 06/07/18 19:20 Ur Specific [place] 1.010 (1.001-1.035) 06/07/18 19:20 Urine Protein NEGATIVE mg/dL (NEGATIVE) 06/07/18 19:20 Urine Glucose (UA) NEGATIVE mg/dL (NEGATIVE) 06/07/18 19:20 Urine Ketones NEGATIVE mg/dL (NEGATIVE) 06/07/18 19:20 Urine Occult Blood TRACE-INTACT (NEGATIVE) H 06/07/18 19:20 Urine Nitrite NEGATIVE (NEGATIVE) 06/07/18 19:20 Urine Bilirubin NEGATIVE (NEGATIVE) 06/07/18 19:20 Urine Urobilinogen 0.2 EU/dL (<2.0) 06/07/18 19:20 Ur Leukocyte Esterase NEGATIVE (NEGATIVE) 06/07/18 19:20 Urine RBC 0-3 (0-2/HPF) 06/07/18 19:20 Urine WBC 0-2 (0-5/HPF) 06/07/18 19:20 Ur Epithelial Cells RARE (NONE-FEW) 06/07/18 19:20 Urine Bacteria RARE (NEGATIVE) 06/07/18 19:20 Urine HCG, Qual NEGATIVE (NEGATIVE) 06/07/18 19:20 H. 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: , Other (See Below) Other OB/BYN History: lumpectomy Psychiatric History: Reports: Anxiety, Depression - Infectious Disease History Infectious Disease History: Reports: Chicken Pox - Past Surgical History GI Surgical History: Reports: Colonoscopy Female Surgical History: Reports: Tubal Ligation - SUBSTANCE USE Smoking Status *Q: Current Every Day Smoker Tobacco Use Within Last Twelve Months: Cigarettes Recreational Drug Use History: No - HOME MEDS Home Medications: Home Meds Venlafaxine [Effexor] 1 tab PO DAILY 07/15/13 [History] Hydrochlorothiazide 0 mg PO DAILY 07/28/16 [History] Potassium 99 mg PO BID 06/07/18 [History] - CURRENT (IN HOUSE) MEDS Current Meds: Current Medications Lactated Ringer's (Ringers, Lactated) 1,000 mls @ 125 mls/hr IV ASDIRECTED [facility] Last Admin: 06/07/18 22:08 Dose: 125 mls/hr Discontinued Medications Bupivacaine HCl (Sensorcaine-Mpf 0.5%) Confirm Administered Dose 10 ml .ROUTE .STK-MED ONE Stop: 06/07/18 22:03 Cefazolin Sodium (Ancef) Confirm Administered Dose 1 gm .ROUTE .STK-MED ONE Stop: 06/07/18 22:03 Dexamethasone (Dexamethasone) Confirm Administered Dose 20 mg .ROUTE .STK-MED ONE Stop: 06/07/18 22:15 Fentanyl (Sublimaze) Confirm Administered Dose 250 mcg .ROUTE .STK-MED ONE Stop: 06/07/18 22:16 Sodium Chloride (Normal Saline) 1,000 mls @ 999 mls/hr IV STAT ONE Stop: 06/07/18 19:49 Last Admin: 06/07/18 19:22 Dose: 999 mls/hr Cefoxitin Sodium 2 gm/ Premix 50 mls @ 100 mls/hr IV ONETIME ONE Stop: 06/07/18 22:20 Iopamidol (Isovue-370 (76%)) 100 ml IVPUSH ONETIME ONE Stop: 06/07/18 20:19 Last Admin: 06/07/18 20:18 Dose: 100 ml Ketorolac Tromethamine (Toradol) 30 mg IVPUSH ONETIME ONE Stop: 06/07/18 18:50 Last Admin: 06/07/18 19:24 Dose: 30 mg Ketorolac Tromethamine (Toradol) Confirm Administered Dose 30 mg .ROUTE .STK- MED ONE Stop: 06/07/18 22:15 Lidocaine (Xylocaine-Mpf 2%) Confirm Administered Dose 5 ml .ROUTE .STK-MED ONE Stop: 06/07/18 22:15 Midazolam HCl (Versed 1 Mg/Ml) Confirm Administered Dose 2 mg .ROUTE .STK-MED ONE Stop: 06/07/18 22:15 Ondansetron HCl (Zofran) 4 mg IVPUSH ONETIME ONE Stop: 06/07/18 18:50 Last Admin: 06/07/18 19:23 Dose: 4 mg Ondansetron HCl (Zofran) Confirm Administered Dose 8 mg .ROUTE .STK-MED ONE Stop: 06/07/18 22:15 Propofol (Diprivan 20 Ml) Confirm Administered Dose 200 mg .ROUTE .STK-MED ONE Stop: 06/07/18 22:15
--- NOTE | 2018-06-08 04:23 | OR ---
SURGEON: Raad Porras M.D. DATE OF PROCEDURE: 06/07/2018 OPERATION PERFORMED: Laparoscopic appendectomy. ANESTHESIA: General endotracheal. ASA CLASSIFICATION: 2E. PREOPERATIVE DIAGNOSIS: Acute abdomen. POSTOPERATIVE DIAGNOSIS: Acute suppurative appendicitis without perforation. ESTIMATED BLOOD LOSS: 10 mL. INTRAOPERATIVE FLUID REPLACEMENT: 1000 mL of crystalloid. INTRAOPERATIVE URINE OUTPUT: 50 mL. DESCRIPTION OF PROCEDURE: The patient was taken to the operating room and placed on the operating table in the supine position. Time-out was called for appropriate identification of the patient and procedure. Sequential compression boots were placed. Following satisfactory attainment of general endotracheal anesthesia, a De Luna catheter was placed in the patient's urinary bladder. The abdomen was prepped with DuraPrep solution and sterile drapes were applied. The skin just above the umbilicus was infiltrated with 0.5% Marcaine solution. The skin incision was made and deepened into the subcutaneous tissue obtaining hemostasis with the use of electrocautery. The Veress needle was introduced into the peritoneal cavity. Saline drop test was positive. Carbon dioxide pneumoperitoneum was established with the relief set at 13 cm of water. Once a satisfactory pneumoperitoneum was established, a 12 mm suprapubic and 5 mm left lower quadrant ports were placed. Each incision had preemptively been infiltrated with 0.5% Marcaine solution. Our attention was turned to the right lower quadrant, where the appendix was stuck down behind the small bowel. Once this was mobilized, I was able to start taking the mesoappendix down with the Harmonic Scalpel. For retraction purposes, it was necessary to place a 4th port in the right lower quadrant. Once this was done, visualization was much better. The remainder of the mesoappendix was taken down with the Harmonic Scalpel. Because of the size of the appendix, it was necessary to use the Endo-LETY stapler with the blue 45+ load. This adequately divided and stapled the appendix. The appendix was promptly placed in an EndoCatch and maintained in the peritoneal cavity. The right lower quadrant was irrigated with 1 L of 1% Ancef solution. All fluid was aspirated after the procedure was done including fluid from the pelvis. There was no significant bleeding from the mesoappendix. The patient was then returned to a neutral position. The 12 mm suprapubic port and EndoCatch containing appendix were removed without difficulty. Under camera vision, the 5 mm right lower quadrant and left lower quadrant ports were removed and finally the supraumbilical camera and port were removed. The wounds were inspected for hemostasis and no other bleeding was noted. The suprapubic and supraumbilical incisions were closed in 2 layers approximating the subcutaneous tissue with 3-0 Vicryl and the skin with subcuticular 4-0 Monocryl. The right lower and left lower quadrant incisions were closed with subcuticular 4-0 Monocryl. All incisions were Steri-Stripped and dressed with sterile Tegaderm pads. Sponge, needle, and instrument counts were all correct. The De Luna catheter was removed prior to emergence from anesthesia. Following emergence from anesthesia and extubation, the patient was taken to recovery room in stable condition. SEBASTIEN NOVOA /[id number]
[2018-06-08] MEDS ORDERED: Acetaminophen/HYDROcodone 325-5 MG Tab PO PRN (04:39)
[2018-06-08] MEDS ORDERED: Morphine 2 MG/ML Syringe IVPUSH PRN (04:46)
[2018-06-08] MEDS ORDERED: Ondansetron 4 MG/2 ML SDV IVPUSH PRN (04:48)
[2018-06-08] MEDS ORDERED: Acetaminophen 325 MG Tab PO PRN (04:49)
[2018-06-08] MEDS: Acetaminophen/HYDROcodone 325-5 MG Tab PO PRN ×2 (05:21→11:21)
--- NOTE | 2018-06-08 10:30 | PCM.POSTAN ---
POST ANESTHESIA ASSESSMENT - RESPIRATORY Respiratory Status: Respiratory Rate WNL, Airway Patent, O2 Saturation Stable - CARDIOVASCULAR CV Status: Pulse Rate WNL, Blood Pressure Stable - GASTROINTESTINAL GI Status: No Symptoms - PAIN Pain Score: 0 - POST OP HYDRATION Hydration Status: Adequate & Stable
[2018-06-08 12:55] VITALS: BP 114/54
--- NOTE | 2018-06-08 17:00 | PCM48HPAN ---
Post Anesthesia Note - EVALUATION WITHIN 48HRS OF ANESTHETIC Vital Signs in Normal Range: Yes Patient Participated in Evaluation: Yes Respiratory Function Stable: Yes Airway Patent: Yes Cardiovascular Function Stable: Yes Hydration Status Stable: Yes Pain Control Satisfactory: Yes Nausea and Vomiting Control Satisfactory: Yes Mental Status Recovered: Yes Pulse Rate: 85 Resp Rate: 20 - COMMENTS/OBSERVATIONS Free Text/Narrative:: Chart reviewed.
== END 2018-06-08 13:50 | disposition home or self-care (01) ==
LOC: MW.ED 18:47 → MW.SDS 21:44 → MW.MS 21:44 → MW.SDS 06-08 13:50
PROVIDERS: ATTEND Surgery
DX: K35.80 Unspecified acute appendicitis (principal); K38.1 Appendicular concretions; I10 Essential (primary) hypertension; F32.9 Major depressive disorder, single episode, unspecified; F17.210 Nicotine dependence, cigarettes, uncomplicated; Z79.899 Other long term (current) drug therapy
CPT/HCPCS: 36415; 74177; 74177-26; 80053; 81001; 81025; 83690; 85025; 86677; 96361; 96374; 96375; 99284; 99285-25; A9270-GY; J0690; J0694; J1100; J1885; J2001; J2250; J2405; J2704; J3010; J3490; J7040; J7050; J7120; Q9967

== ENCOUNTER 2023-09-09 20:28 | Emergency (ER) | payer BC, OTHER ==
[2023-09-09] MEDS: Ketorolac 30 MG/ML SDV IVPUSH ONE (20:57)
[2023-09-09] MEDS: Aspirin 81 MG Tab.Chew PO ONE (20:57)
[2023-09-09] MEDS: Sodium Chloride 0.9% 1,000 ML IV ONE (20:57)
[2023-09-09 21:01] LABS: BASOPHILS ABSOLUTE AUTO 0.09 K/uL (0.00-0.20); EOSINOPHILS ABSOLUTE AUTO 0.24 K/uL (0.00-0.45); EOSINOPHILS PERCENT AUTO 2.6 % (0.0-6.0); HEMATOCRIT 38.6 % (37.0-47.0); HEMOGLOBIN 12.3 g/dL (12.0-16.0); IMMATURE GRAN ABSOLUTE AUTO 0.02 K/uL (0.00-0.05); IMMATURE GRAN PERCENT AUTO 0.2 % (0.0-0.4); LYMPHOCYTES ABSOLUTE AUTO 4.45 K/uL (1.00-4.80); LYMPHOCYTES PERCENT AUTO 48.3 % (24.0-44.0); MEAN CORPUSCULAR HEMOGLOBIN 25.6 pg (28.0-32.0); MEAN CORPUSCULAR HGB CONC 31.9 g/dL (32.0-36.0); MEAN CORPUSCULAR VOLUME 80.4 fL (83.0-99.0); MEAN PLATELET VOLUME 9.5 fL (9.4-12.3); MONOCYTES ABSOLUTE AUTO 0.45 K/uL (0.00-0.80); MONOCYTES PERCENT AUTO 4.9 % (0.0-8.0); NEUTROPHILS ABSOLUTE AUTO 3.97 K/uL (1.80-7.70); PLATELET COUNT,PLT 226 K/uL (150-400); WHITE BLOOD CELL COUNT,WBC 9.22 K/uL (3.9-11.3)
[2023-09-09] MEDS: Alum Hydro/Mag Hydro/Simeth XS 15 ML, Lidocaine 2% 5 ML PO ONE ×2 (21:04→22:01)
[2023-09-09] MEDS: Aluminum Hydroxide/Magnesium Hydroxide/Simethicone XS Susp 30 ML Cup ONE (21:05)
[2023-09-09 21:37] LABS: A/G RATIO 0.9 (0.9-1.6); ALANINE AMINOTRANSFERASE,ALT 29 IU/L (14-63); ALBUMIN 3.5 g/dL (3.4-5.0); ALKALINE PHOSPHATASE 59 U/L (46-116); ASPARTATE AMNIOTRANSFERASE,AST 21 IU/L (15-37); BILIRUBIN TOTAL 0.4 mg/dL (0.2-1.0); BLOOD UREA NITROGEN,BUN 20 mg/dL (7.0-18.0); CALCIUM 9.5 mg/dL (8.5-10.1); CARBON DIOXIDE,CO2 26.1 mmol/L (21.0-32.0); CHLORIDE,CL 104 mmol/L (98-107); EST CRCL DRUG DOSING (CG) 69.31 mL/min; GLUCOSE RANDOM 93 mg/dL (74-106); POTASSIUM,K 3.9 mmol/L (3.5-5.1); PROTEIN TOTAL,TP 7.2 g/dL (6.4-8.2); SODIUM,NA 141 mmol/L (136-145)
[2023-09-09 21:38] LABS: CORONAVIRUS COVID-19 NAA NEGATIVE (NEGATIVE); INFLUENZA A NAA NEGATIVE (NEGATIVE); INFLUENZA B NAA NEGATIVE (NEGATIVE); RESPIRATORY SYNCYTIAL VIR NAA NEGATIVE (NEGATIVE)
[2023-09-09 21:40] LABS: ESTIMATED GFR 73 mL/min (>60)
[2023-09-09 23:04] VITALS: BP 118/67; PULSE 60
== END 2023-09-09 23:03 | disposition left against medical advice (07) ==
LOC: MW.ED 20:28
DX: K21.9 Gastro-esophageal reflux disease without esophagitis (principal); I10 Essential (primary) hypertension; F17.210 Nicotine dependence, cigarettes, uncomplicated; Z75.8 Other problems related to medical facilities and other health care
CPT/HCPCS: 0241U; 36415; 71046; 80053; 83735; 84484; 85025; 93005; 96361; 96374; 99285; A9270; J1885; J7030; 93010; 99284